=== PATIENT | male | born 1990 ===

== ENCOUNTER 2022-09-14 09:20 | Day surgery (SDC) | payer OTHER ==
[~2022-09-14] VITALS: Ht 182.9 cm; Wt 99.8 kg
[2022-09-14] MEDS ORDERED: fentaNYL citrate 0.05 MG/ML VIAL ONE (10:07)
[2022-09-14] MEDS ORDERED: LIDOCAINE 2% 100 MG/5 ML UJET TP ONE (10:07)
[2022-09-14] MEDS ORDERED: diphenhydrAMINE 50 MG/ML VIAL ONE (10:07)
[2022-09-14] MEDS ORDERED: MIDAZOLAM 5 MG/5 ML VIAL ONE (10:07)
[2022-09-14] MEDS ORDERED: diphenhydrAMINE 50 MG/ML VIAL IVP ONE (12:35)
[2022-09-14] MEDS ORDERED: MIDAZOLAM 2 MG/2 ML VIAL IVP ONE (12:35)
[2022-09-14] MEDS ORDERED: fentaNYL citrate 0.05 MG/ML VIAL IVP ONE (12:35)
== END 2022-09-14 13:25 | disposition home or self-care (01) ==
LOC: MDS 09:20 → MMU 09:21 → MDS 13:25
PROVIDERS: ATTEND Internal Medicine Gastroenterology
DX: K62.5 Hemorrhage of anus and rectum (principal); K76.89 Other specified diseases of liver; F17.210 Nicotine dependence, cigarettes, uncomplicated; Z20.822 Contact with and (suspected) exposure to COVID-19
CPT/HCPCS: 45378; 87426; J1200; J2250; J3010